=== PATIENT | female | born 1960 | race Caucasian/White ===

== ENCOUNTER 2018-07-18 09:28 | Inpatient (IN) ==
[2018-07-18] MEDS ORDERED: Ipratropium/Albuterol Neb 3 ML IH ONE (10:29)
[2018-07-18 10:35] LABS: Basophils # 0.1 K/mcL (0.0-0.2); Basophils % 0.4 %; Eosinophils % 0.2 %; Hematocrit 38.3 % (35.3-44.9); Hemoglobin 12.8 g/dL (11.5-15.4); Immature Granulocytes % 0.7 % (0-4); Lymphocytes # 1.2 K/mcL (0.6-4.6); Lymphocytes % 7.4 %; Mean Corpuscular HGB Conc 33.4 g/dL (31.6-35.5); Mean Corpuscular Hemoglobin 34.8 pg (28.0-33.3); Mean Corpuscular Volume 104.1 fL (83.0-100.0); Mean Platelet Volume 9.1 fL (9.4-12.4); Monocytes # 0.9 K/mcL (0.0-1.3); Monocytes % 5.4 %; Platelet Count 291 K/mcL (140-400); Red Blood Count 3.68 M/mcL (3.82-4.97); Red Cell Distribution Width 13.6 % (11.5-14.5); Segmented Neutrophils % 85.9 %
[2018-07-18 10:36] LABS: Neutrophils # 14.4 K/mcL (1.6-8.9)
[2018-07-18] MEDS ORDERED: Levofloxacin 750 MG/150 ML 750 MG/150 ML BAG IVPB ONE (10:43)
[2018-07-18 10:48] LABS: INR 1.3
[2018-07-18 10:49] LABS: VBG HCO3 34 mEq/L (21-27); VBG PCO2 58 mmHg (41-51); VBG PH 7.37 pH Units (7.32-7.42); VBG PO2 56 mmHg (25-50)
[2018-07-18 10:51] LABS: Activated Partial Thrombo Time 31.1 Seconds (26.0-36.0)
[2018-07-18 10:55] LABS: Alanine Aminotransferase 10 Units/L (7-52); Albumin 3.5 g/dL (3.5-5.7); Albumin/Globulin Ratio 1.2 (1.1-2.2); Alkaline Phosphatase 86 Units/L (34-104); Aspartate Amino Transferase 12 Units/L (13-39); BUN/Creatinine Ratio 34 (6-26); Bilirubin,Total 0.3 mg/dL (0.3-1.0); Blood Urea Nitrogen 18 mg/dL (6-20); Calcium 8.8 mg/dL (8.6-10.3); Carbon Dioxide 33 mEq/L (23-29); Chloride 101 mEq/L (98-107); Creatine Kinase 57 Units/L (30-223); Globulin 2.9 g/dL (2.4-3.5); Glucose 113 mg/dL (70-105); Osmolality,Calculated 293 (280-300); Potassium 3.6 mEq/L (3.5-5.1); Sodium 140 mEq/L (136-145); Total Protein 6.4 g/dL (6.4-8.9); eGFR For Non-African Americans > 60 (> 60)
[2018-07-18 10:59] LABS: Troponin I < 0.03 ng/mL (< 0.04)
[2018-07-18] MEDS ORDERED: Nicotine 21 MG PATCH.TD24 TD ONE ×2 (11:48→11:53)
[2018-07-18] MEDS ORDERED: Naloxone 0.4 MG/ML INJ IVP PRN (11:53)
--- NOTE | 2018-07-18 11:54 | Emergency Department Note ---
Disposition Clinical Impression: Community acquired pneumonia Qualifiers: Laterality: unspecified laterality Qualified Code(s): J18.9 - Pneumonia, unspecified organism Disposition: Admitted As Inpatient SOB HPI - General Chief Complaint: ED Upper Respiratory Infection Stated Complaint: no energy, dizzy, possible pneumonia Time Seen by Provider: 07/18/18 10:30 Source: patient, family Mode of arrival: ambulatory Limitations: no limitations Nursing Notes Reviewed: Yes Vital Signs Reviewed: Yes - History of Present Illness 58-year-old female who presents to ER with complaints of increased weakness, shortness of breath and productive cough. Patient reports she is been sick for approximately 3 weeks. Patient has not been seen for this. Patient reports breathing got so bad last night she called EMS but declined transport. Patient reports that her sats were in the 50s per EMS. Patient is not have home O2. Patient has had a productive cough of yellow sputum. Patient denies fevers or chills. Patient reports generalized weakness. Patient reports weight loss and decreased appetite. Patient reports she is under a lot of stress with her son living in her home. Pt Subjective Complaint: shortness of breath, cough Onset (ago): week(s) (3) Context: recent illness Severity: moderate Consistency/Duration: gradually worsening Improves with: nothing - Related Data Home Medications Medication Instructions Recorded Confirmed No Known Home Drugs 07/18/18 07/18/18 Allergies Allergy/AdvReac Type Severity Reaction Status Date / Time No Known Allergies Allergy Verified 08/07/17 13:28 All systems ED: reviewed and negative except as stated. Review of Systems: As Per HPI Constitutional: Reports: weakness. Denies: fever, chills Eyes: Denies: eye discharge ENT ED: Reports: congestion. Denies: ear pain Cardiovascular: Denies: chest pain, palpitations Respiratory: Reports: cough, dyspnea, sputum production Gastrointestinal: Denies: abdominal pain, nausea, vomiting Integumentary: Denies: rash Neurological: Reports: weakness. Denies: headache, numbness, paresthesias Psychiatric: Reports: depression Endocrine: Reports: fatigue Hematological/Lymphatic: Denies: easy bleeding, easy bruising Past Medical History - Past Medical History Attestation: Yes The following information was validated with the patient. 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 Absent: conjunctival injection - ENT ENT exam: normal oropharynx, mucous membranes moist, TM's normal bilaterally - Neck Neck exam: Present: normal inspection, full ROM. Absent: lymphadenopathy - Chest Chest inspection: Present: normal inspection, symmetric chest wall rise - Expanded Respiratory Exam Location: rhonchi: Left, Right, Lower, decreased breath sounds: Left, Right, Lower - Cardiovascular Cardiovascular exam: Present: regular rate, normal rhythm, normal heart sounds - Abdominal Exam Abdominal exam: Present: soft, Non-Tender, normal bowel sounds - Extremities Exam Extremities exam: Present: normal inspection, full ROM. Absent: pedal edema - Neurological Exam Neurological exam: Present: alert, oriented X3. Absent: motor sensory deficit - Psychiatric Psychiatric exam: Present: depressed, flat affect. Absent: suicidal ideation - Skin Skin exam: Present: warm, dry, intact, normal color Course Course Narrative: . Patient given IV fluids, duonebs and antibiotics. Patient has been accepted to hospitalist for admission. Patient O2 sats improved with 3 L nasal cannula Vital Signs Temperature 97.2 F L 07/18/18 09:40 Pulse Rate 93 07/18/18 09:40 Respiratory Rate 16 07/18/18 09:40 Blood Pressure 116/67 07/18/18 09:40 O2 Sat by Pulse Oximetry 84 07/18/18 09:40 Temperature 96.6 F L 07/19/18 06:01 Pulse Rate 73 07/19/18 06:01 Respiratory Rate 16 07/19/18 06:01 Blood Pressure 108/64 07/19/18 06:01 O2 Sat by Pulse Oximetry 93 07/19/18 06:01 Oxygen Delivery Oxygen Delivery Nasal Cannula Shortness of Breath/Dyspnea - Differential Diagnosis Likely: acute exacerbation of chronic obstructive airways disease, pneumonia - Lab Data Lab results reviewed: Yes I reviewed the patient's lab results. Lab results narrative: Patient's labs reviewed patient has leukocytosis at 16,000. Patient's lactic acid level is within normal limits. Patient's cardiac labs are negative. Results discussed with patient. Result diagrams: 07/19/18 05:35 07/19/18 05:35 Lab Results 07/18/18 07/18/18 07/18/18 Range/Units 10:26 10:26 10:26 WBC 16.8 H (4.3-11.1) K/mcL RBC 3.68 L (3.82-4.97) M/mcL Hgb 12.8 (11.5-15.4) g/dL Hct 38.3 (35.3-44.9) % MCV 104.1 H (83.0-100.0) fL MCH 34.8 H (28.0-33.3) pg MCHC 33.4 (31.6-35.5) g/dL RDW 13.6 (11.5-14.5) % Plt Count 291 (140-400) K/mcL MPV 9.1 L (9.4-12.4) fL Immature Gran % 0.7 (0-4) % Seg Neutrophils % 85.9 % Lymphocytes % 7.4 % Monocytes % 5.4 % Eosinophils % 0.2 % Basophils % 0.4 % Neutrophils # 14.4 H (1.6-8.9) K/mcL Lymphocytes # 1.2 (0.6-4.6) K/mcL Monocytes # 0.9 (0.0-1.3) K/mcL Eosinophils # 0.0 (0.0-0.6) K/mcL Basophils # 0.1 (0.0-0.2) K/mcL PT 15.0 H (9.4-12.1) Seconds INR 1.3 APTT 31.1 (26.0-36.0) Seconds VBG pH (7.32-7.42) pH Units VBG pCO2 (41-51) mmHg VBG pO2 (25-50) mmHg VBG HCO3 (21-27) mEq/L Sodium 140 (136-145) mEq/L Potassium 3.6 (3.5-5.1) mEq/L Chloride 101 (98-107) mEq/L Carbon Dioxide 33 H (23-29) mEq/L BUN 18 (6-20) mg/dL Creatinine 0.53 L (0.60-1.20) mg/dL Est GFR ( Amer) > 60 (> 60) Est GFR (Non-Af Amer) > 60 (> 60) BUN/Creatinine Ratio 34 H (6-26) Glucose 113 H (70-105) mg/dL Calculated Osmolality 293 (280-300) Lactic Acid (0.5-2.2) mmol/L Calcium 8.8 (8.6-10.3) mg/dL Total Bilirubin 0.3 (0.3-1.0) mg/dL AST 12 L (13-39) Units/L ALT 10 (7-52) Units/L Alkaline Phosphatase 86 (34-104) Units/L Creatine Kinase 57 (30-223) Units/L Troponin I < 0.03 (< 0.04) ng/mL B-Natriuretic Peptide (Less than 100) pg/mL Serum Total Protein 6.4 (6.4-8.9) g/dL Albumin 3.5 (3.5-5.7) g/dL Globulin 2.9 (2.4-3.5) g/dL Albumin/Globulin Ratio 1.2 (1.1-2.2) 07/18/18 07/18/18 07/18/18 Range/Units 10:26 10:26 10:45 WBC (4.3-11.1) K/mcL RBC (3.82-4.97) M/mcL Hgb (11.5-15.4) g/dL Hct (35.3-44.9) % MCV (83.0-100.0) fL MCH (28.0-33.3) pg MCHC (31.6-35.5) g/dL RDW (11.5-14.5) % Plt Count (140-400) K/mcL MPV (9.4-12.4) fL Immature Gran % (0-4) % Seg Neutrophils % % Lymphocytes % % Monocytes % % Eosinophils % % Basophils % % Neutrophils # (1.6-8.9) K/mcL Lymphocytes # (0.6-4.6) K/mcL Monocytes # (0.0-1.3) K/mcL Eosinophils # (0.0-0.6) K/mcL Basophils # (0.0-0.2) K/mcL PT (9.4-12.1) Seconds INR APTT (26.0-36.0) Seconds VBG pH 7.37 (7.32-7.42) pH Units VBG pCO2 58 H (41-51) mmHg VBG pO2 56 H (25-50) mmHg VBG HCO3 34 H (21-27) mEq/L Sodium (136-145) mEq/L Potassium (3.5-5.1) mEq/L Chloride (98-107) mEq/L Carbon Dioxide (23-29) mEq/L BUN (6-20) mg/dL Creatinine (0.60-1.20) mg/dL Est GFR ( Amer) (> 60) Est GFR (Non-Af Amer) (> 60) BUN/Creatinine Ratio (6-26) Glucose (70-105) mg/dL Calculated Osmolality (280-300) Lactic Acid 0.8 (0.5-2.2) mmol/L Calcium (8.6-10.3) mg/dL Total Bilirubin (0.3-1.0) mg/dL AST (13-39) Units/L ALT (7-52) Units/L Alkaline Phosphatase (34-104) Units/L Creatine Kinase (30-223) Units/L Troponin I (< 0.04) ng/mL B-Natriuretic Peptide 74 (Less than 100) pg/mL Serum Total Protein (6.4-8.9) g/dL Albumin (3.5-5.7) g/dL Globulin (2.4-3.5) g/dL Albumin/Globulin Ratio (1.1-2.2) - Radiology Data Radiology results reviewed: Yes I reviewed the patient's radiology results. His chest x-ray was interpreted by the radiologist and reviewed by me as positive for multilobar pneumonia bilateral. Results discussed with patient. - EKG Data EKG attestation: Yes I reviewed and interpreted this EKG. EKG shows normal: Reports: sinus rhythm Rate: Reports: normal Rhythm: Reports: NSR Cummings/QRS: Reports: normal Interpretation: Reports: no acute changes
[2018-07-18] MEDS: Nicotine 21 MG PATCH.TD24 TD SCH (15:56)
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
[2018-07-18] MEDS ORDERED: Acetaminophen 325 MG TABLET PO PRN (16:31)
[2018-07-18] MEDS: methylPREDNISolone 125 MG/2 ML VIAL IVP SCH (17:12)
[2018-07-18] MEDS: traMADol 50 MG TABLET PO PRN (18:43)
[2018-07-19] MEDS: 0.9 % Sodium Chloride 1,000 ML IVC SCH ×3 (01:56→19:35)
[2018-07-19] MEDS: methylPREDNISolone 125 MG/2 ML VIAL IVP SCH ×3 (01:57→16:02)
[2018-07-19] MEDS: traMADol 50 MG TABLET PO PRN ×3 (02:24→16:02)
[2018-07-19 06:23] LABS: Basophils % 0.2 %; Hematocrit 46.1 % (35.3-44.9); Hemoglobin 15.2 g/dL (11.5-15.4); Immature Granulocytes % 0.9 % (0-4); Lymphocytes # 0.7 K/mcL (0.6-4.6); Lymphocytes % 5.8 %; Mean Corpuscular Hemoglobin 34.5 pg (28.0-33.3); Mean Corpuscular Volume 104.5 fL (83.0-100.0); Mean Platelet Volume 9.3 fL (9.4-12.4); Monocytes # 0.1 K/mcL (0.0-1.3); Monocytes % 1.2 %; Neutrophils # 10.6 K/mcL (1.6-8.9); Platelet Count 355 K/mcL (140-400); Red Blood Count 4.41 M/mcL (3.82-4.97); Red Cell Distribution Width 13.2 % (11.5-14.5); Segmented Neutrophils % 91.9 %
[2018-07-19 06:35] LABS: BUN/Creatinine Ratio 20 (6-26); Blood Urea Nitrogen 12 mg/dL (6-20); Calcium 9.7 mg/dL (8.6-10.3); Carbon Dioxide 36 mEq/L (23-29); Chloride 96 mEq/L (98-107); Glucose 252 mg/dL (70-105); Osmolality,Calculated 288 (280-300); Sodium 135 mEq/L (136-145); eGFR For Non-African Americans > 60 (> 60)
[2018-07-19] MEDS: *HR* Enoxaparin 40 MG/0.4 ML SYRINGE SQ SCH (06:39)
[2018-07-19] MEDS: Albuterol 2.5 MG/3 ML NEBULIZER IH PRN (06:51)
[2018-07-19] MEDS: Levofloxacin 750 MG/150 ML 750 MG/150 ML BAG IVPB SCH (09:51)
[2018-07-19] MEDS: Nicotine 21 MG PATCH.TD24 TD SCH (09:52)
--- NOTE | 2018-07-19 12:31 | Electrocardiograph Report ---
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
--- NOTE | 2018-07-19 14:26 | Internal Med Progress Note ---
Date of Encounter: 07/19/18 Time of Encounter: 11:50 - Assessment and plan (1) Community acquired pneumonia Current Visit: Yes Status: Acute Assessment and plan: We will continue as planned with IV antibiotics and steroids. Will attempt to wean oxygen in a day or 2. We will continue aerosolized albuterol as this seems to control her dyspnea, well. Qualifiers: Laterality: unspecified laterality Qualified Code(s): J18.9 - Pneumonia, unspecified organism (2) Insomnia Current Visit: Yes Status: Acute Assessment and plan: Improved versus home. Qualifiers: Insomnia type: unspecified Qualified Code(s): G47.00 - Insomnia, unspecified (3) Tobacco abuse Current Visit: Yes Status: Acute Assessment and plan: On nicotine patch. (4) Peripheral arterial disease Current Visit: Yes Status: Acute Assessment and plan: At some point, will need formal Dopplers with waveforms. (5) DVT prophylaxis Current Visit: Yes Status: Acute Assessment and plan: Unfractionated heparin. (6) Chronic back pain Current Visit: Yes Status: Acute Assessment and plan: I advised ice as a trial. Qualifiers: Back pain location: low back pain Back pain laterality: bilateral Sciatica presence: without sciatica Qualified Code(s): M54.5 - Low back pain; G89.29 - Other chronic pain (7) Depression Current Visit: Yes Status: Acute Assessment and plan: Seems to have improved now that she is feeling better medically. However, will need consideration for outpatient follow-up. Qualifiers: Depression Type: reactive depression Qualified Code(s): F32.9 - Major depressive disorder, single episode, unspecified - Subjective Interval history: The patient states that she is feeling better. She states that she coughed up a lot of phlegm. She denies hemoptysis or other abnormalities of her phlegm. She states that she is breathing somewhat better than yesterday but still not normal. She notes that her oxygen came off during the night and when he checked her oxygen that was found to be in the 70% range. She denies other acute changes or problems. Patient has no complaint of chest discomfort, dyspnea, orthopnea, palpitations, nausea or vomiting, constipation or diarrhea, other changes in bowel habits, difficulty with urination, rash or itching, or other new complaints, except as mentioned above. Review of systems is otherwise negative. I discussed management of her care with nursing staff. - Constitutional Vitals: Temp Pulse Resp BP Pulse Ox 97.2 F L 84 20 98/67 92 07/19/18 08:44 07/19/18 08:44 07/19/18 08:44 07/19/18 08:44 07/19/18 08:44 Exam: Examination: (Except as mentioned above): General: In no apparent distress. Alert and oriented 3. Nondiaphoretic. Head: Atraumatic and normocephalic. Respiratory: No use of accessory muscles. Lungs have markedly improved airflow versus yesterday. She has scattered sonorous rhonchi, throughout. No wheezing or rales are noted. Cardiovascular: Regular rate and rhythm without murmur appreciated. Abdomen: Bowel sounds are normal. No hepatosplenomegaly mass or tenderness appreciated. Obese and therefore difficult to palpate deeply. Extremities: No cyanosis clubbing or edema. Skin: Warm and non-diaphoretic with no new lesions noted. The patient asks about "knots" on her low back. She is actually pointing to the SI joints and I explained that I thought these were normal. The low back pain that she has is of some etiology immediately obvious. Internal Medicine: Result - Labs CBC & Chem 7: 07/19/18 05:35 07/19/18 05:35 Labs: Short CBC 07/19/18 Range/Units 05:35 WBC 11.5 H (4.3-11.1) K/mcL Hgb 15.2 D (11.5-15.4) g/dL Hct 46.1 H (35.3-44.9) % Plt Count 355 (140-400) K/mcL Neutrophils # 10.6 H (1.6-8.9) K/mcL BMP 07/19/18 05:35 Sodium 135 L Potassium 4.0 Chloride 96 L Carbon Dioxide 36 H BUN 12 Creatinine 0.59 L Glucose 252 H Calcium 9.7 - ABG Interpretation ABG results: PT/INR, D-dimer PT 15.0 Seconds (9.4-12.1) H 07/18/18 10:26 - Impressions Impressions Chest X-Ray 07/18/18 10:07 IMPRESSION: Findings are consistent with bilateral multi lobar pneumonia. Radiographic follow-up recommended to assure resolution. D/ / 07/18/2018 10:51:48 Capo Bryan MD / carlita Interpreting Provider: Capo Bryan MD Consult Discharge Plan - Plan Referrals: NONE,PCP [Primary Care Provider] -
[2018-07-20] MEDS: methylPREDNISolone 125 MG/2 ML VIAL IVP SCH ×3 (00:07→16:01)
[2018-07-20] MEDS: 0.9 % Sodium Chloride 1,000 ML IVC SCH ×4 (02:53→19:22)
[2018-07-20] MEDS: Albuterol 2.5 MG/3 ML NEBULIZER IH PRN (04:18)
[2018-07-20] MEDS: *HR* Enoxaparin 40 MG/0.4 ML SYRINGE SQ SCH (04:18)
[2018-07-20] MEDS: traMADol 50 MG TABLET PO PRN ×3 (04:31→17:41)
[2018-07-20] MEDS: Levofloxacin 750 MG/150 ML 750 MG/150 ML BAG IVPB SCH (08:56)
[2018-07-20] MEDS: Nicotine 21 MG PATCH.TD24 TD SCH (08:58)
--- NOTE | 2018-07-20 15:20 | Internal Med Progress Note ---
Date of Encounter: 07/21/18 Time of Encounter: 15:18 - Assessment and plan (1) Community acquired pneumonia Current Visit: Yes Status: Acute Assessment and plan: Plan to discharge tomorrow if stable and can wean oxygen. Qualifiers: Laterality: unspecified laterality Qualified Code(s): J18.9 - Pneumonia, unspecified organism (2) Insomnia Current Visit: Yes Status: Acute Assessment and plan: This is not to be addressed any further currently but will have her follow up with primary care physician. Qualifiers: Insomnia type: unspecified Qualified Code(s): G47.00 - Insomnia, unspecified (3) Tobacco abuse Current Visit: Yes Status: Chronic Assessment and plan: Doing okay with nicotine patch. Again encouraged her to stop when she is discharged. (4) Peripheral arterial disease Current Visit: Yes Status: Acute Assessment and plan: She will need a follow-up Dopplers with waveforms to assess and possible vascular referral. (5) DVT prophylaxis Current Visit: Yes Status: Acute Assessment and plan: Doing fine with current regimen. (6) Chronic back pain Current Visit: Yes Status: Acute Assessment and plan: No acute changes. Jameel is maintaining her currently. Qualifiers: Back pain location: low back pain Back pain laterality: bilateral Sciatica presence: without sciatica Qualified Code(s): M54.5 - Low back pain; G89.29 - Other chronic pain (7) Depression Current Visit: Yes Status: Acute Assessment and plan: See insomnia, above. Qualifiers: Depression Type: reactive depression Qualified Code(s): F32.9 - Major depressive disorder, single episode, unspecified - Subjective Interval history: She is breathing much better and coughing much less. Back discomfort is also improved. However, she still noted to desaturate. We discussed the use of less oxygen during the daytime and at night if that works. I told her that we would probably try switching to oral medications and assessing her oxygen for possible home O2 tomorrow and hope to discharge her tomorrow. Patient has no complaint of chest discomfort, dyspnea, orthopnea, palpitations, nausea or vomiting, constipation or diarrhea, other changes in bowel habits, difficulty with urination, rash or itching, or other new complaints, except as mentioned above. Review of systems is otherwise negative. I discussed management of her care with nursing staff. - Constitutional Vitals: Temp Pulse Resp BP Pulse Ox 98.0 F 72 18 125/71 3 07/20/18 11:52 07/20/18 11:52 07/20/18 11:52 07/20/18 11:52 07/20/18 12:05 Exam: Examination: (Except as mentioned above): General: In no apparent distress. Alert and oriented 3. Nondiaphoretic. Head: Atraumatic and normocephalic. Respiratory: No use of accessory muscles. Lungs are nearly clear throughout with occasional sonorous rhonchi. Normal airflow. Cardiovascular: Regular rate and rhythm without murmur appreciated. Abdomen: Bowel sounds are normal. No hepatosplenomegaly mass or tenderness appreciated. Extremities: No cyanosis clubbing or edema. Skin: Warm and non-diaphoretic with no new lesions noted. Internal Medicine: Result - Labs CBC & Chem 7: 07/21/18 05:05 07/21/18 05:05 - ABG Interpretation ABG results: PT/INR, D-dimer PT 15.0 Seconds (9.4-12.1) H 07/18/18 10:26 Consult Discharge Plan - Plan Referrals: NONE,PCP [Primary Care Provider] - Jcarlos Alvarez, [employer] [Non-Partnered Physician] - 08/05/18 2:00 pm
[2018-07-20 18:38] LABS: Folate 6.3 ng/mL (3.0-16.0)
[2018-07-21] MEDS: methylPREDNISolone 125 MG/2 ML VIAL IVP SCH ×2 (00:07→09:30)
[2018-07-21] MEDS: 0.9 % Sodium Chloride 1,000 ML IVC SCH (03:02)
[2018-07-21] MEDS: *HR* Enoxaparin 40 MG/0.4 ML SYRINGE SQ SCH (04:16)
[2018-07-21] MEDS: Albuterol 2.5 MG/3 ML NEBULIZER IH PRN (04:16)
[2018-07-21] MEDS: traMADol 50 MG TABLET PO PRN ×2 (04:16→10:57)
[2018-07-21 05:54] LABS: Basophils # 0.1 K/mcL (0.0-0.2); Basophils % 0.4 %; Immature Granulocytes % 6.8 % (0-4); Lymphocytes # 0.8 K/mcL (0.6-4.6); Lymphocytes % 4.6 %; Mean Corpuscular HGB Conc 32.5 g/dL (31.6-35.5); Mean Corpuscular Hemoglobin 34.6 pg (28.0-33.3); Mean Corpuscular Volume 106.4 fL (83.0-100.0); Mean Platelet Volume 9.4 fL (9.4-12.4); Monocytes # 0.4 K/mcL (0.0-1.3); Monocytes % 2.1 %; Neutrophils # 14.6 K/mcL (1.6-8.9); Platelet Count 394 K/mcL (140-400); Red Blood Count 3.76 M/mcL (3.82-4.97); Red Cell Distribution Width 13.5 % (11.5-14.5); Segmented Neutrophils % 86.1 %
[2018-07-21 06:10] LABS: Alanine Aminotransferase 10 Units/L (7-52); Albumin/Globulin Ratio 1.2 (1.1-2.2); Alkaline Phosphatase 70 Units/L (34-104); Aspartate Amino Transferase 9 Units/L (13-39); BUN/Creatinine Ratio 25 (6-26); Bilirubin,Total 0.2 mg/dL (0.3-1.0); Blood Urea Nitrogen 13 mg/dL (6-20); Calcium 8.5 mg/dL (8.6-10.3); Carbon Dioxide 30 mEq/L (23-29); Chloride 108 mEq/L (98-107); Globulin 2.5 g/dL (2.4-3.5); Glucose 156 mg/dL (70-105); Osmolality,Calculated 295 (280-300); Potassium 3.8 mEq/L (3.5-5.1); Sodium 141 mEq/L (136-145); Total Protein 5.5 g/dL (6.4-8.9); eGFR For Non-African Americans > 60 (> 60)
[2018-07-21 06:47] LABS: Macrocytosis Present (Not Present); Platelet Estimate Normal (Normal)
[2018-07-21] MEDS: Nicotine 21 MG PATCH.TD24 TD SCH (09:30)
[2018-07-21] MEDS: Levofloxacin 750 MG/150 ML 750 MG/150 ML BAG IVPB SCH (09:30)
[2018-07-21 11:36] VITALS: BP 134/77
--- NOTE | 2018-07-21 11:54 | Discharge Summary ---
Addendum entered and electronically signed by Alex Bond MD 07/21/18 12:30: I have personally performed a face to face evaluation on this patient. I have r eviewed and agree with the care plan. History and Exam by me shows: Patient is feeling markedly better. She has cough and her dyspnea is about the same as baseline with dyspnea on exertion, even walking around. She desaturates on room air to 86% so home oxygen has been arranged. She is pleased that we arrange to follow-up with Jcarlos Galvez CNP. She will follow with him on August 05. Discussed care with other providers and/or nursing. Patient has no complaint of chest discomfort, dyspnea, orthopnea, palpitations, nausea or vomiting, constipation or diarrhea, other changes in bowel habits, difficulty with urination, rash or itching, or other new complaints, except as mentioned above. Review of systems is otherwise negative. Examination: (Except as mentioned above): General: In no apparent distress. Alert and oriented 3. Nondiaphoretic. Head: Atraumatic and normocephalic. Respiratory: No use of accessory muscles. Lungs are clear throughout, again with rare sonorous rhonchi. Nearly rlormal airflow. Cardiovascular: Regular rate and rhythm without murmur appreciated. Abdomen: Bowel sounds are normal. No hepatosplenomegaly mass or tenderness appreciated. . Extremities: No cyanosis clubbing or edema. Skin: Warm and non-diaphoretic with no new lesions noted. Follow-up problems include insomnia and depression but will defer medication to her new PCP. Peripheral vascular disease. This will require Dopplers with waveforms to be set up as an outpatient. COPD Will need follow-up and she will be prescribed antibiotics and steroids with pro-air inhaler. Community-acquired pneumonia to be treated with 10 days of Levaquin. Tobacco abuse and I strongly encouraged her to stop smoking again. She will go home with a nicotine patch. Chronic back pain to be treated with Ultram and the patient has been told to try to wean this. She will be given a week's worth better primary care appointment this in 2 weeks. Original Note: - NOTES TO OUTPATIENT PROVIDER Notes to Outpatient Provider: f/u with PCP Elliott Galvez NIGHT MONITOR. home O2, continue levaquin and prednisone taper. Orders not resulted at time of discharge: Pending orders 07/18/18 10:20 Culture,Blood [BC] Stat Date of Encounter: 07/21/18 Time of Encounter: 11:52 - Discharge Diagnosis (1) Community acquired pneumonia Priority: Primary Status: Acute Comments: Continue Levaquin 750 mg daily for 10 days. Will start prednisone taper 40 mg times 5 days 30 mg times 5 days 20 mg times 5 days and 10 mg times 5 days. Follow up with Elliott Galvez. nurse practitioner in office within one week. Will go home with home oxygen. Qualifiers: Laterality: unspecified laterality Qualified Code(s): J18.9 - Pneumonia, unspecified organism (2) Tobacco abuse Priority: Secondary Status: Chronic Comments: Educated smoking cessation. Patient agreeable to wear nicotine patches. To follow up with family practice. Instructed not to smoke with nicotine patch on. (3) Chronic back pain Priority: Secondary Status: Acute Comments: Continue tramadol 100 mg every 6 hours as needed for one week. Prescription provided. Qualifiers: Back pain location: low back pain Back pain laterality: bilateral Sciatica presence: without sciatica Qualified Code(s): M54.5 - Low back pain; G89.29 - Other chronic pain Hospital course: Ms. Taylor is a 58 year old female discharging to home status post inpatient for pneumonia. Scheduled to see Elliott galvez nurse practitioner for follow-up within one week. Educated smoking cessation. Patient would like to continue nicotine patches. Agreed not to smoke with them on. Will continue Levaquin PO and prednisone taper. Tramadol ordered for low back pain. Discharge discussed with: patient, nurse, social work Time spent discussing smoking cessation with patient: more than 10 minutes - Time Spent with Patient Total time spent providing and/or coordinating discharge services: Less than 30 minutes - Discharge Medications Home Medications: Acetaminophen [Tylenol] 650 mg PO Q6HR PRN tablet 07/21/18 [Rx] Nicotine Patch [Nicoderm] 21 mg TD DAILY patch.[id number] 07/21/18 [Rx] Allergies/Adverse Reactions: Allergy/AdvReac Type Severity Reaction Status Date / Time No Known Allergies Allergy Verified 08/07/17 13:28 Date of admission: 07/18/18 17:50 Primary care physician: PCP NONE Consults: 07/18/18 11:53 Consult to Behavioral Medical Director [CONS] Routine Reason for SW Consult: discharge planning Discharging clinician: Alex Bond Anticipated date of discharge: 07/21/18 - Constitutional Vitals: Temp Pulse Resp BP Pulse Ox 97.8 F 72 16 134/77 90 07/21/18 11:35 07/21/18 11:35 07/21/18 11:35 07/21/18 11:35 07/21/18 11:35 General appearance: Present: cooperative, A&O X 3, pleasant, no acute distress, answers questions appropriately - Head Head exam: Present: atraumatic, normocephalic - Eye Eye exam: Present: PERRL, conjuntiva pink, sclera anicteric Pupils: Present: PERRL - Neck Neck exam general surgery: Present: supple, trachea midline. Absent: lymphadenopathy - Respiratory Respiratory exam: Present: rhonchi. Absent: accessory muscle use, rales, wheezes Additional comments: Scattered rhonchi throughout. Congested cough. - Cardiovascular Cardiovascular exam: Present: RRR, +S1, +S2. Absent: diastolic murmur, gallop, rubs, systolic murmur - GI/Abdominal GI/Abdominal exam: Present: normal bowel sounds, soft, no peritoneal signs. Absent: distended, tenderness - Extremities Exam Extremities exam: Present: warm, radial pulses palpable and symmetrical. Absent: calf tenderness, cyanotic, pedal edema - Neurological Exam Neurological exam: Present: CN II-XII intact, oriented X3, no focal deficits. Absent: pronater drift, facial droop, speech deficit - Skin Skin exam: Present: dry, intact - Patient Status Disposition: Home, Self-Care Condition: Good Functional capacity at discharge: independent ambulation Overall status at discharge: patient is progressing back to baseline - Discharge Instructions Follow Up With: NONE,PCP [Primary Care Provider] - Jcarlos Galvez [employer] CONSULTANT [employer] [Non-Partnered Physician] - 08/05/18 2:00 pm - Diet and Activity Activity: increase activity as tolerated, wear oxygen at all times Diet: advance to your usual diet
== END 2018-07-21 14:31 | disposition home or self-care (01) | DRG 139 ==
LOC: INPGRE 09:28 → EMEROOGRE 09:28 → INPGRE 12:52